=== PATIENT | female | born 1980 | race Caucasian/White ===

== ENCOUNTER → 2020-09-08 | Outpatient (CLI) | payer OTHER ==
[2020-09-08 20:22] LABS: ALBUMIN 3.5 GM/DL (3.2-5.2); ALT/SGPT 30 U/L (12-78); BILIRUBIN,TOTAL 0.4 MG/DL (0.2-1.0); BLOOD UREA NITROGEN 12 MG/DL (7-18); CALCIUM LEVEL 8.8 MG/DL (8.5-10.1); CARBON DIOXIDE LEVEL 27 MEQ/L (21-32); CHLORIDE LEVEL 103 MEQ/L (98-107); CHOLESTEROL LEVEL 155 MG/DL (<200); CHOLESTEROL RISK RATIO 3.444 (<5); CREATININE FOR GFR 0.68 MG/DL (0.55-1.30); FERRITIN 190 NG/ML (8-252); FREE T4 1.04 NG/DL (0.76-1.46); GLOMERULAR FILTRATION RATE > 60.0 (>60); GLUCOSE, FASTING 93 MG/DL (70-100); HDL CHOLESTEROL 45 MG/DL (>40); IRON (FE) 72 UG/DL (50-170); LDL CHOLESTEROL 89 MG/DL (<100); NON-HDL-C 110 MG/DL; PERCENT SATURATION 23.7 % (13.2-45.0); POTASSIUM SERUM 4.4 MEQ/L (3.5-5.1); SODIUM LEVEL 137 MEQ/L (136-145); TOTAL IRON BINDING CAPACITY 304 UG/DL (250-450); TOTAL PROTEIN 7.4 GM/DL (6.4-8.2); TRIGLYCERIDES LEVEL 104 MG/DL (<150)
[2020-09-08 20:46] LABS: TOTAL 25(OH) VITAMIN D 6.5 NG/ML (30.0-100.0); VITAMIN B12 LEVEL 440 PG/ML
[2020-09-11 11:36] LABS: FOLATE 9.8 NG/ML
== END ==
LOC: M WUC 15:47
PROVIDERS: ATTEND Nurse Practitioner Family
DX: E03.9 Hypothyroidism, unspecified (principal); E88.81 Metabolic syndrome and other insulin resistance; Z98.84 Bariatric surgery status